=== PATIENT | female | born 1955 | race Hispanic/Latino ===

== ENCOUNTER 2021-12-30 21:48 | Inpatient (IN) | payer OTHER ==
[~2021-12-30] VITALS: Ht 152.4 cm; Wt 48.9 kg
[2021-12-30 22:53] LABS: BASOPHILS % (AUTO) 0.6 % (0.0-5.0); EOSINOPHILS % (AUTO) 1.2 % (0.0-8.0); HEMATOCRIT 35.9 % (36-48); LYMPHOCYTES % (AUTO) 20.4 % (21.0-51.0); MEAN CORPUSCULAR HEMOGLOBIN 29.3 pg (27.0-33.0); MEAN CORPUSCULAR HGB CONC 32.9 g/dL (32.0-36.0); MEAN CORPUSCULAR VOLUME 89.1 fL (79-99); MONOCYTES % (AUTO) 7.7 % (3.0-13.0); NEUTROPHILS % (AUTO) 69.4 % (40.0-77.0); PLATELET COUNT (AUTO) 220 K/uL (130-400); RED BLOOD CELL COUNT(AUTO) 4.03 MIL/uL (4.00-5.50); RED CELL DISTRIBUTION WIDTH 12.1 % (11.0-15.5); WHITE BLOOD COUNT (AUTO) 15.2 K/uL (4.8-10.8)
[2021-12-30] MEDS ORDERED: TETANUS/DIPHTHERIA TOXOID [ADULT] 0.5 ML VIAL IM ONE (23:00)
[2021-12-30] MEDS ORDERED: 0.9% NACL 500ML IV.SOLN 500 ML IV ONE (23:00)
[2021-12-30] MEDS ORDERED: CEFAZOLIN SODIUM 1 GM VIAL IVP ONE (23:00)
[2021-12-30 23:01] LABS: CREATININE 0.9 mg/dL (0.5-1.5); POTASSIUM 3.7 mmol/L (3.5-5.1)
[2021-12-30 23:06] LABS: ALBUMIN 3.5 g/dL (3.5-5.0); BILIRUBIN,TOTAL 0.3 mg/dL (0.2-1.0); TOTAL PROTEIN, SERUM 7.1 g/dL (6.0-8.3)
[2021-12-31] VITALS (20 sets, daily range): BP systolic 128–179; BP diastolic 67–94
[2021-12-31] MEDS ORDERED: HYDRALAZINE 20MG/ML VIAL IV PRN (02:00)
[2021-12-31] MEDS ORDERED: UNASYN 3GM VIAL IV SCH (02:00)
[2021-12-31] MEDS ORDERED: ACETAMINOPHEN 650 MG SUPPOSITORY RC PRN (02:00)
[2021-12-31] MEDS ORDERED: AMPICILLIN/SULBAC 1.5GM VIAL ONE (02:04)
[2021-12-31] MEDS ORDERED: IBUP-14 PO (03:18)
[2021-12-31] MEDS: ONDANSETRON 4MG INJ IVP PRN ×2 (03:19→11:23)
[2021-12-31 03:21] LABS: APPEARANCE,URINE Clear (CLEAR); BILIRUBIN,URINE Negative (NEGATIVE); COLOR,URINE Yellow (YELLOW); GLUCOSE, URINE (UA) Negative (NEGATIVE); KETONES,URINE Negative (NEGATIVE); LEUKOCYTE ESTERASE ,URINE Moderate (NEGATIVE); NITRATE,URINE Negative (NEGATIVE); OCCULT BLOOD,URINE Negative (NEGATIVE); PH,URINE 7.5 (5.0-8.0); PROTEIN,URINE Negative (NEGATIVE); UROBILINOGEN,URINE 0.2 mg/dL (0.2-1.0)
[2021-12-31] MEDS ORDERED: ROSU10TA28 PO (03:23)
[2021-12-31] MEDS ORDERED: MVIT PO (03:23)
[2021-12-31] MEDS ORDERED: LOSA50TA64 PO (03:23)
[2021-12-31] MEDS ORDERED: CALC500T7 PO (03:23)
[2021-12-31 03:29] LABS: BACTERIA,URINE None Seen /HPF (None Seen); MUCUS,URINE Few LPF (None Seen); RBC,URINE None Seen /HPF (0-1); SQUAMOUS EPITHELIAL CELL,UR Few /HPF (0-2)
[2021-12-31] MEDS: HYDROMORPHONE 0.5 MG SYG (0.5MG/0.5ML) IVP PRN ×2 (04:59→11:24)
[2021-12-31] MEDS: FAMOTIDINE 20MG VIAL IV SCH (08:47)
[2021-12-31] MEDS: AMP/SULBAC 3GM+NS 100ML 100 ML IV SCH (08:48)
[2021-12-31] MEDS ORDERED: AMOX/CLAV 875/125MG TAB PO SCH (09:00)
[2021-12-31] MEDS ORDERED: LIDOCAINE PF 100MG/5ML (2%) SYRINGE 5ML ONE (13:43)
[2021-12-31] MEDS ORDERED: DEXAMETHASONE SOD PHOSPHATE 10MG/ML 1ML VIAL ONE ×2 (13:44→15:58)
[2021-12-31] MEDS ORDERED: ROCURONIUM 10MG/1ML SYR 10 MG/ML ML ONE (13:44)
[2021-12-31] MEDS ORDERED: NEOSTIGMINE 5MG/5ML SYR IV ONE ×2 (13:44→15:51)
[2021-12-31] MEDS ORDERED: PROPOFOL 10 MG/ML 20ML VIAL IV ONE (13:44)
[2021-12-31] MEDS ORDERED: MIDAZOLAM HCL 1 MG/ML 2ML VIAL ONE (13:44)
[2021-12-31] MEDS ORDERED: ONDANSETRON 4MG INJ ONE (13:44)
[2021-12-31] MEDS ORDERED: FENTANYL CITRATE PF 50 MCG/1 ML 2ML VIAL ONE ×2 (13:44→14:28)
[2021-12-31] MEDS ORDERED: GLYCOPYRROLATE 1 MG/5 ML SYRINGE ONE ×2 (13:44→15:51)
[2021-12-31] MEDS ORDERED: VANCOMYCIN 1G VIAL ONE (14:23)
[2021-12-31] MEDS ORDERED: ROPIVACAINE 0.5% 5MG/ML 30ML IJ ONE (15:57)
[2021-12-31] MEDS ORDERED: TRAMADOL HCL 50 MG TABLET PO PRN (19:30)
[2021-12-31] MEDS ORDERED: HYDROCODONE/ACETAMINOPHEN 5/325 MG TAB PO PRN (19:30)
[2022-01-01 03:19] VITALS: BP 135/76
[2022-01-01 03:55] LABS: MEAN CORPUSCULAR HEMOGLOBIN 29.2 pg (27.0-33.0); MEAN CORPUSCULAR HGB CONC 33.1 g/dL (32.0-36.0); MEAN CORPUSCULAR VOLUME 88.2 fL (79-99); RED BLOOD CELL COUNT(AUTO) 3.97 MIL/uL (4.00-5.50); WHITE BLOOD COUNT (AUTO) 12.5 K/uL (4.8-10.8)
[2022-01-01 04:10] LABS: CREATININE 0.6 mg/dL (0.5-1.5)
[2022-01-01 07:15] VITALS: BP 136/75
[2022-01-01] MEDS: FAMOTIDINE 20MG VIAL IV SCH ×2 (08:09→20:49)
[2022-01-01] MEDS: AMP/SULBAC 3GM+NS 100ML 100 ML IV SCH ×2 (08:09→20:49)
[2022-01-01 11:10] VITALS: BP 143/74
[2022-01-01 15:05] VITALS: BP 153/82
[2022-01-01 20:39] VITALS: BP 142/71
[2022-01-01] MEDS: KETOROLAC 15MG/ML VIAL (15MG/ML) IM PRN (20:56)
[2022-01-01 23:16] VITALS: BP 145/76
[2022-01-02 03:41] VITALS: BP 119/74
[2022-01-02 04:28] LABS: BASOPHILS % (AUTO) 0.6 % (0.0-5.0); EOSINOPHILS % (AUTO) 0.3 % (0.0-8.0); HEMATOCRIT 32.7 % (36-48); LYMPHOCYTES % (AUTO) 24.3 % (21.0-51.0); MEAN CORPUSCULAR HEMOGLOBIN 29.4 pg (27.0-33.0); MEAN CORPUSCULAR HGB CONC 32.4 g/dL (32.0-36.0); MEAN CORPUSCULAR VOLUME 90.6 fL (79-99); MONOCYTES % (AUTO) 10.6 % (3.0-13.0); NEUTROPHILS % (AUTO) 63.8 % (40.0-77.0); PLATELET COUNT (AUTO) 204 K/uL (130-400); RED BLOOD CELL COUNT(AUTO) 3.61 MIL/uL (4.00-5.50); RED CELL DISTRIBUTION WIDTH 12.4 % (11.0-15.5); WHITE BLOOD COUNT (AUTO) 13.6 K/uL (4.8-10.8)
[2022-01-02 05:10] LABS: ALBUMIN 2.9 g/dL (3.5-5.0); BILIRUBIN,TOTAL 0.3 mg/dL (0.2-1.0); CREATININE 0.6 mg/dL (0.5-1.5); POTASSIUM 3.4 mmol/L (3.5-5.1); TOTAL PROTEIN, SERUM 6.3 g/dL (6.0-8.3)
[2022-01-02 07:25] VITALS: BP 148/84
[2022-01-02] MEDS: AMP/SULBAC 3GM+NS 100ML 100 ML IV SCH ×2 (09:17→22:16)
[2022-01-02] MEDS: FAMOTIDINE 20MG TAB PO SCH ×2 (09:17→22:16)
[2022-01-02] MEDS: ENOXAPARIN SODIUM 30 MG/0.3 ML SQ SCH (09:18)
[2022-01-02 11:20] VITALS: BP 137/77
[2022-01-02] MEDS ORDERED: KCL 20 MEQ ERTAB PO PRN (12:00)
[2022-01-02] MEDS ORDERED: POTASSIUM CHLORIDE 10% ELIXIR 20 MEQ/15 ML UDCUP PO PRN (12:00)
[2022-01-02] MEDS ORDERED: LIDOCAINE HCL-MPF 1% 2ML VIAL IV PRN (12:00)
[2022-01-02] MEDS ORDERED: POTASSIUM CHLORIDE 20MEQ/100ML 100 ML IV PRN (12:00)
[2022-01-02] MEDS: HYDROCODONE/ACETAMINOPHEN 5/325 MG TAB PO PRN ×2 (13:27→17:46)
[2022-01-02 15:15] VITALS: BP 138/78
[2022-01-02 21:54] VITALS: BP 133/76
[2022-01-02 23:43] VITALS: BP 125/76
[2022-01-03 04:29] VITALS: BP 128/64
[2022-01-03 04:38] LABS: EOSINOPHILS % (AUTO) 2.2 % (0.0-8.0); HEMATOCRIT 31.9 % (36-48); LYMPHOCYTES % (AUTO) 41.6 % (21.0-51.0); MEAN CORPUSCULAR HEMOGLOBIN 28.7 pg (27.0-33.0); MEAN CORPUSCULAR VOLUME 89.9 fL (79-99); MONOCYTES % (AUTO) 12.5 % (3.0-13.0); NEUTROPHILS % (AUTO) 42.5 % (40.0-77.0); PLATELET COUNT (AUTO) 222 K/uL (130-400); RED BLOOD CELL COUNT(AUTO) 3.55 MIL/uL (4.00-5.50); RED CELL DISTRIBUTION WIDTH 12.4 % (11.0-15.5); WHITE BLOOD COUNT (AUTO) 8.2 K/uL (4.8-10.8)
[2022-01-03 04:49] LABS: ALBUMIN 2.7 g/dL (3.5-5.0); BILIRUBIN,TOTAL 0.3 mg/dL (0.2-1.0); CREATININE 0.6 mg/dL (0.5-1.5); POTASSIUM 3.7 mmol/L (3.5-5.1)
[2022-01-03] MEDS: HYDROCODONE/ACETAMINOPHEN 5/325 MG TAB PO PRN ×3 (07:15→21:30)
[2022-01-03 07:30] VITALS: BP 160/89
[2022-01-03] MEDS: AMP/SULBAC 3GM+NS 100ML 100 ML IV SCH ×2 (09:21→20:15)
[2022-01-03] MEDS: FAMOTIDINE 20MG TAB PO SCH ×2 (09:21→20:15)
[2022-01-03] MEDS: ENOXAPARIN SODIUM 30 MG/0.3 ML SQ SCH (09:22)
[2022-01-03 11:00] VITALS: BP 155/82
[2022-01-03] MEDS: ONDANSETRON 4MG INJ IVP PRN (13:14)
[2022-01-03 16:00] VITALS: BP 153/85
[2022-01-03 20:20] VITALS: BP 138/74
[2022-01-04 00:05] VITALS: BP 128/72
[2022-01-04] MEDS: KETOROLAC 15MG/ML VIAL (15MG/ML) IM PRN (00:39)
[2022-01-04 04:11] VITALS: BP 117/66
[2022-01-04] MEDS: HYDROCODONE/ACETAMINOPHEN 5/325 MG TAB PO PRN ×2 (05:40→08:25)
[2022-01-04 08:00] VITALS: BP 132/77
[2022-01-04] MEDS: ENOXAPARIN SODIUM 30 MG/0.3 ML SQ SCH (08:21)
[2022-01-04] MEDS: AMP/SULBAC 3GM+NS 100ML 100 ML IV SCH (08:21)
[2022-01-04] MEDS: FAMOTIDINE 20MG TAB PO SCH (08:21)
[2022-01-04] MEDS ORDERED: AMOX-426 PO (10:27)
[2022-01-04 12:00] VITALS: BP 132/74
== END 2022-01-04 16:30 | disposition home health service (06) | DRG 511 ==
LOC: EDH 21:48 → EDHIP 12-31 00:39 → OBSVTOIN 12-31 00:39 → 4AH 12-31 02:30
PROVIDERS: ADMIT Internal Medicine; ATTEND Internal Medicine
PROC: 3E0234Z Introduction of Serum, Toxoid and Vaccine into Muscle, Percutaneous Approach (ICD-10-PCS; 2021-12-30)
PROC: 0PSJ04Z Reposition Left Radius with Internal Fixation Device, Open Approach (ICD-10-PCS; principal; 2021-12-31 13:45)
DX: S52.302B Unspecified fracture of shaft of left radius, initial encounter for open fracture type I or II (principal); N39.0 Urinary tract infection, site not specified; S52.602B Unspecified fracture of lower end of left ulna, initial encounter for open fracture type I or II; E78.00 Pure hypercholesterolemia, unspecified; I10 Essential (primary) hypertension; E78.5 Hyperlipidemia, unspecified; W54.0XXA Bitten by dog, initial encounter; Y93.89 Activity, other specified; Y92.89 Other specified places as the place of occurrence of the external cause; Y99.8 Other external cause status; Z23 Encounter for immunization
CPT/HCPCS: 36415; 73090; 80048; 80053; 81001; 85025; 85027; 87070; 87076; 87088; 87205; 87635; 90714; G0378; J0295; J0690; J1100; J1170; J1650; J1885; J2001; J2250; J2405; J2704; J2710; J2795; J3010; J3370; J3490; J7040